=== PATIENT | female | born 1955 | race Caucasian/White ===

== ENCOUNTER 2018-05-25 00:39 | Emergency (ER) | payer OTHER ==
[2018-05-25 00:49] VITALS: BMI 29.0
[2018-05-25 02:20] LABS: URINE APPEARANCE CLEAR; URINE BILIRUBIN NEGATIVE (<2.0 mg/dL); URINE COLOR COLORLESS; URINE GLUCOSE (UA) NEGATIVE (NEGATIVE); URINE KETONE NEGATIVE (NEGATIVE); URINE LEUK ESTERASE NEGATIVE (NEGATIVE); URINE NITRITE NEGATIVE (NEGATIVE); URINE PROTEIN NEGATIVE (NEGATIVE); URINE UROBILINOGEN NEGATIVE mg/dL (0.2-1.0)
[2018-05-25 02:21] LABS: BASO % 0.7 % (0-2.0); EOS % 2.2 % (0-4.5); HEMATOCRIT 41.3 % (32.4-45.2); HEMOGLOBIN 14.3 GM/dL (10.7-15.3); LYMPH % 27.5 % (8-40); MCH 30.8 pg (25.7-33.7); MCHC 34.5 g/dl (32.0-36.0); MEAN CELL VOLUME 89.1 fl (80-96); MEAN PLT VOLUME 9.6 fl (7.5-11.1); MONO % 7.6 % (3.8-10.2); PLATELET COUNT 156 K/MM3 (134-434); RBC 4.64 M/mm3 (3.60-5.2); RDW 14.1 % (11.6-15.6); WHITE BLOOD COUNT 10.3 K/mm3 (4.0-10.0)
[2018-05-25 02:41] LABS: ALBUMIN 3.8 g/dl (3.4-5.0); ANION GAP 6 (8-16); BILIRUBIN,TOTAL 0.4 mg/dL (0.2-1.0); BLOOD UREA NITROGEN 17 mg/dL (7-18); CALCIUM 9.1 mg/dL (8.5-10.1); CHLORIDE 110 mmol/L (98-107); CO2 26 mmol/L (21-32); CREATININE 0.9 mg/dL (0.55-1.02); GLUCOSE,RANDOM 135 mg/dL (74-106); POTASSIUM 4.1 mmol/L (3.5-5.1); SGOT/AST 35 U/L (15-37); SGPT/ALT 43 U/L (12-78); SODIUM 142 mmol/L (136-145); TOT PROT 7.7 g/dl (6.4-8.2)
[2018-05-25 02:42] LABS: ALK PHOS 105 U/L (45-117)
--- NOTE | 2018-05-25 04:01 | PDOC ---
History of Present Illness - General Chief Complaint: Nausea Stated Complaint: SOB,EAR PAIN,VOMITTING,NAUSEA Time Seen by Provider: 05/25/18 01:33 - History of Present Illness Initial Comments: 05/25/18 04:01 63f with pmh of hypothyroidism and arthritis presents to the ED for difficulty taking a full breath since 7pm tonight, with discomfort to the chest and back. One episode of vomiting today Also complains of right hear pain for the past 4-5 days. No recent swimming, no recent travel. Past History - Past Medical History Allergies/Adverse Reactions: Allergies Allergy/AdvReac Type Severity Reaction Status Date / Time No Known Allergies Allergy Verified 05/25/18 00:48 COPD: No Hypercholesterolemia: Yes Thyroid Disease: Yes - Suicide/Smoking/Psychosocial Hx Smoking History: Never smoked Review of Systems - Review of Systems Able to Perform ROS?: Yes Is the patient limited [place] proficient: No Constitutional: No: Symptoms Reported HEENTM: Yes: See HPI Respiratory: Yes: See HPI Cardiac (ROS): No: Symptoms Reported ABD/GI: No: Symptoms Reported : No: Symptoms Reported Musculoskeletal: No: Symptoms Reported Integumentary: No: Symptoms Reported Neurological: No: Symptoms reported All Other Systems: Reviewed and Negative *Physical Exam - Vital Signs Last Vital Signs Temp Pulse Resp BP Pulse Ox 98.0 F 68 18 148/77 99 05/25/18 00:46 05/25/18 00:46 05/25/18 00:46 05/25/18 00:46 05/25/18 00:46 - Physical Exam General Appearance: Yes: Nourished, Appropriately Dressed. No: Apparent Distress HEENT: positive: EOMI, STACIA, Normal ENT Inspection. negative: TM Bulging, TM Dull, TM Erythema Respiratory/Chest: positive: Lungs Clear, Normal Breath Sounds. negative: Chest Tender, Respiratory Distress Cardiovascular: positive: Regular Rhythm, Regular Rate, S1, S2 Gastrointestinal/Abdominal: positive: Normal Bowel Sounds, Flat, Soft. negative : Tender Extremity: positive: Normal Capillary Refill, Normal Inspection, Normal Range of Motion Integumentary: positive: Normal Color, Dry, Warm ED Treatment Course - LABORATORY CBC & Chemistry Diagram: 05/25/18 02:15 05/25/18 02:12 - ADDITIONAL ORDERS Additional order review: Laboratory Results 05/25/18 05/25/18 05/25/18 03:42 02:12 02:12 Sodium 142 Potassium 4.1 Chloride 110 H Carbon Dioxide 26 Anion Gap 6 L BUN 17 Creatinine 0.9 Creat Clearance w eGFR > 60 Random Glucose 135 H Calcium 9.1 Total Bilirubin 0.4 AST 35 ALT 43 Alkaline Phosphatase 105 Troponin I < 0.02 Total Protein 7.7 Albumin 3.8 TSH 6.14 H Urine Color Colorless Urine Appearance Clear Urine pH 7.0 Ur Specific Pierce 1.002 Urine Protein Negative Urine Glucose (UA) Negative Urine Ketones Negative Urine Blood Negative Urine Nitrite Negative Urine Bilirubin Negative Urine Urobilinogen Negative Ur Leukocyte Esterase Negative 05/25/18 02:15 RBC 4.64 MCV 89.1 MCHC 34.5 RDW 14.1 MPV 9.6 Neutrophils % 62.0 Lymphocytes % 27.5 Monocytes % 7.6 Eosinophils % 2.2 Basophils % 0.7 - RADIOLOGY Radiology Studies Ordered: Category Date Time Status CHEST PA & LAT [RAD] Stat Radiology 05/25/18 01:54 Taken Medical Decision Making - Medical Decision Making 05/25/18 04:10 Labs negative, EKG normal. Wells score of 0 Elevated TSH, patient will have to follow up with PCP 05/25/18 04:18 troponin pending: negative. ok to dc with follow up *DC/Admit/Observation/Transfer Diagnosis at time of Disposition: Atypical chest pain - Discharge Dispostion Disposition: HOME Condition at time of disposition: Improved Decision to Admit order: No - Referrals Referrals: Jorge Banks MD [Primary Care Provider] - - Patient Instructions Printed Discharge Instructions: DI for Atypical Chest Pain Additional Instructions: Come back to the ER for any ne, worsening or concerning symptom. Follow up with your primary care provider about your elevated TSH and adjustment of thyroid medication. - Post Discharge Activity
--- NOTE | 2018-05-25 04:07 | PDOC ---
Attending Attestation - Resident Resident Name: Andre Gonzalez - ED Attending Attestation I have performed the following: I have examined & evaluated the patient, The case was reviewed & discussed with the resident, I agree w/resident's findings & plan - HPI HPI: 05/25/18 05:14 Gasper 63 YOF with PMH of hypothyroidism and arthritis presents to the ER for chest discomfort difficulty taking a full breath, and emesis x1 since 7pm tonight. Patient states she was lying flat when her symptoms began suddenly. Patient describes the chest pain as intermittent and nonradiating, that has resolved here in the ER. Patient is also complaining of right ear pain for the past 4-5 days. Patient denies recent travel. Denies dizziness, headache, fever, chills, nausea, diarrhea and constipation. Denies dysuria, frequency, urgency and hematuria. Allergies: NKA Past surgical history: None reported. Social history: No reported alcohol, drug, or cigarette use. PCP: Dr. Banks - Physicial Exam PE: 05/25/18 05:14 NAD, well appearing, MMM, nl conjunctiva, anicteric; neck supple. lungs clear, RRR, abdomen soft nontender. BARCENAS x4, no focal neuro deficits. No peripheral edema. normal color for ethnicity, WWP. - Medical Decision Making 05/25/18 04:29 Gasper 63 YOF with PMH of hypothyroidism and arthritis presents to the ER for chest pain. Vital signs wnl, reviewed. DDx. PUD/GERD, ACS, doubt PE or dissection or emergent pathology; considered hepatitis/biliary colic, pancreatitis, no abd sx. Normal lytes, LFTs and lipase. Hypothyroid with elevated TSH on levothyroxine UA neg for infection. ECG unremarkable, EKG normal sinus rhythm, no interval abnormalities, narrow QRS , ST and T wave segments and morphology normal. Nonspecific T wave abnormalities isolated TWI in III, otherwise unremarkable. Heart score 1, low risk chest pain, mace risk <1.7% at 30 days. Trop neg x1. reassuring, doubt ACS given duration of sx, and since improved, hemodynamically appropriate. Pt informed of my clinical impression, treatment recommendations and disposition plan. All questions answered to patient's satisfaction and expressed understanding and comfort with this. Reasons for returning to the ED sooner discussed with the patient otherwise, follow up with her primary care physician. At the time of discharge, the patient is alert, improved, tolerating po and understands instructions. f/u PCP with hypothyroidism and workup/up titration of meds if necessary. 05/25/18 04:31 05/25/18 05:14 05/25/18 05:15 Heart Score/ECG Review - History History: Slightly suspicious - Electrocardiogram EKG: Normal - Age Age: 45-65 - Risk Factors Based on the list above the patient has:: No risk factors known - Troponin Troponin: </= normal limit - Score Heart Score - Total: 1 - ECG Impressions Comment:: 05/25/18 04:30 EKG normal sinus rhythm, no interval abnormalities, narrow QRS, ST and T wave segments and morphology normal. Nonspecific T wave abnormalities isolated TWI in III, otherwise unremarkable.
[2018-05-25] MEDS ORDERED: ONDANSETRON *ODT* 4 MG TABLET SL ONE (04:12)
[2018-05-25 05:31] VITALS: BP 128/74; PULSE 76; TEMP 98.2
--- NOTE | 2018-05-25 08:54 | EKG ---
Test Reason : Blood Pressure : / mmHG Vent. Rate : 068 BPM Atrial Rate : 068 BPM P-R Int : 144 ms QRS Dur : 080 ms QT Int : 412 ms P-R-T Axes : 044 -26 022 degrees QTc Int : 438 ms NORMAL SINUS RHYTHM NORMAL ECG NO PREVIOUS ECGS AVAILABLE Confirmed by RODOLFO ARCEO MD ([id number]) on 05/25/2018 8:53:56 AM Referred By: Confirmed By:RODOLFO ARCEO MD
== END 2018-05-25 06:05 | disposition home or self-care (01) ==
LOC: JER 00:39
DX: R07.89 Other chest pain (principal); E07.9 Disorder of thyroid, unspecified; E78.00 Pure hypercholesterolemia, unspecified
CPT/HCPCS: 36415; 71046-TC-FY; 80053; 81003; 84443; 84484; 85025; 93005; 93010; 99282-25